=== PATIENT | male | born 1990 | race Caucasian/White ===

== ENCOUNTER 2017-08-28 11:38 | Emergency (ER) | payer OTHER ==
--- NOTE | 2017-08-28 14:31 | RAD ---
INDICATION: Facial injury. TECHNIQUE: 4 views of the facial bones were obtained. FINDINGS: No fracture is seen. There is mild deviation of the nasal septum toward the right side. The paranasal sinuses appear clear. IMPRESSION: NO EVIDENCE FOR FRACTURE.
--- NOTE | 2017-08-28 14:33 | RAD ---
INDICATION: Left great toe injury. TECHNIQUE: 3 views of the left great toe were obtained. FINDINGS: There is soft tissue swelling which is most prominent adjacent to the distal phalanx. There is a fracture through the plantar base of the distal phalanx extending to the articular margin. The fracture fragment is distracted. IMPRESSION: DISPLACED INTRA-ARTICULAR FRACTURE BASE OF THE DISTAL PHALANX.
--- NOTE | 2017-08-28 14:33 | RAD ---
INDICATION: Right femur injury. TECHNIQUE: 2 views of the right femur were obtained. FINDINGS: The bones are normal alignment. No fracture is seen. IMPRESSION: NO EVIDENCE FOR FRACTURE.
--- NOTE | 2017-08-28 14:35 | RAD ---
INDICATION: Left lower leg injury. TECHNIQUE: 2 views of the left lower leg were obtained. FINDINGS: There is soft tissue swelling anterior to the proximal diaphysis of the tibia. The bones are in normal alignment. No fracture is seen. IMPRESSION: SOFT TISSUE SWELLING, NO FRACTURE IS SEEN.
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
== END 2017-08-28 14:50 | disposition home or self-care (01) ==
LOC: UCEAST 11:38
DX: S92.912A Unspecified fracture of left toe(s), initial encounter for closed fracture (principal); W06.XXXA Fall from bed, initial encounter; S70.12XA Contusion of left thigh, initial encounter; S00.83XA Contusion of other part of head, initial encounter; S00.531A Contusion of lip, initial encounter; Y93.9 Activity, unspecified; Y92.9 Unspecified place or not applicable; Y99.9 Unspecified external cause status
CPT/HCPCS: 70150; 99201; G0463

== ENCOUNTER 2019-10-31 15:29 | Emergency (ER) | payer BC, OTHER ==
[2019-10-31] MEDS ORDERED: Tetan/Diph/Pertus SYR(Tdap)* 0.5 ML SYR(BOOSTRIX) use SYR contains LATEX IM ONE (16:30)
--- NOTE | 2019-10-31 17:05 | UC ---
Hand/Wrist HPI - HPI Summary HPI Summary: 29-year-old male presents for puncture wound to his left index finger. States 2 days ago he accidentally drilled a screw into the palmar aspect of his left index finger over the DIP. States that the screw only penetrated the skin superficially as it went through a thick pair of work gloves. States he immediately cleaned out the wound with soap and water. Last tetanus was over 10 years ago. Denies fever, chills, erythema, edema, pain or decreased range of motion. - History Of Current Complaint Chief Complaint: UCUpperExtremity Stated Complaint: TETNUS NEEDED Time Seen by Provider: 10/31/19 16:36 Hx Obtained From: Patient Pain Intensity: 0 - Allergies/Home Medications Allergies/Adverse Reactions: Allergies Allergy/AdvReac Type Severity Reaction Status Date / Time No Known Allergies Allergy Verified 10/31/19 15:39 Home Medications: Home Medications NK [No Home Medications Reported] 10/31/19 [History Confirmed 10/31/19] PMH/Surg Hx/FS Hx/Imm Hx Previously Healthy: Yes - Denies significant PMH - Surgical History Surgical History: None - Family History Known Family History: Positive: Non-Contributory - Social History Occupation: Employed Full-time Lives: With Family Alcohol Use: Occasionally Substance Use Type: None Smoking Status (MU): Never Smoked Tobacco - Immunization History Most Recent Influenza Vaccination: none Most Recent Tetanus Shot: unknown Review of Systems All Other Systems Reviewed And Are Negative: Yes Constitutional: Negative: Fever, Chills Skin: Positive: Other - See HPI Respiratory: Positive: Negative Cardiovascular: Positive: Negative Gastrointestinal: Positive: Negative Genitourinary: Positive: Negative Motor: Negative: Weakness Neurovascular: Negative: Decreased Sensation Musculoskeletal: Negative: Arthralgia, Decreased ROM Neurological: Positive: Negative Is Patient Immunocompromised?: No Physical Exam - Summary Physical Exam Summary: GENERAL APPEARANCE: Well developed, well nourished, alert and cooperative, and appears to be in no acute distress. CARDIAC: Normal S1 and S2. No S3, S4 or murmurs. Rhythm is regular. There is no peripheral edema, cyanosis or pallor. Extremities are warm and well perfused. Capillary refill is less than 2 seconds. Peripheral pulses intact. LUNGS: Clear to auscultation without rales, rhonchi, wheezing or diminished breath sounds. ABDOMEN: Positive bowel sounds. Soft, nondistended, nontender. No guarding or rebound. No masses or hepatosplenomegally. MUSKULOSKELETAL:Normal muscular development. Normal gait. EXTREMITIES: Superficial puncture wound to the palmar aspect of the left index finger over the DIP. No erythema, edema, or discharge noted. The DIP is non- tender. Full ROM to the finger. Circulation and sensation. SKIN: Skin normal color, texture and turgor. Triage Information Reviewed: Yes Vital Signs: Initial Vital Signs Temp 99.2 F 10/31/19 15:35 Pulse 73 10/31/19 15:35 Resp 16 10/31/19 15:35 BP 114/71 10/31/19 15:35 Pulse Ox 98 10/31/19 15:35 Vital Signs Reviewed: Yes Hand/Wrist Course/Dx - Course Course Of Treatment: 29-year-old male presents for puncture wound to his left index finger. States 2 days ago he accidentally drilled a screw into the palmar aspect of his left index finger over the DIP. States that the screw only penetrated the skin superficially as it went through a thick pair of work gloves. States he immediately cleaned out the wound with soap and water. Last tetanus was over 10 years ago. Denies fever, chills, erythema, edema, pain or decreased range of motion. Afebrile. Vital signs stable. Patient had a superficial puncture wound to the palmar aspect of the left index finger over the DIP, no erythema, edema, or discharge noted, the DIP was non-tender, he had Full ROM to the finger with circulation and sensation. Considering the mechanism and location of the injury we discussed possibly obtaining a x-ray to rule out foreign body or fracture however patient is electing to defer this at this time. His tetanus was updated. He is to return here or with his primary care provider as needed. Wound care, anticipatory guidance, and warning symptoms are reviewed with the patient. Verbalizes understanding and agrees with plan of care. - Differential Dx/Diagnosis Differential Diagnosis/HQI/PQRI: Cellulitis, Fracture, Puncture Wound Provider Diagnosis: Puncture wound of left index finger Discharge ED - Sign-Out/Discharge Documenting (check all that apply): Patient Departure All imaging exams completed and their final reports reviewed: No Studies - Discharge Plan Condition: Stable Disposition: HOME Patient Education Materials: Puncture Wound (ED) Referrals: No Primary Care Phys,NOPCP [Primary Care Provider] - Additional Instructions: Your tetanus was updated today. Be sure to notify your primary care provider so that he can update their records. Clean the wound with a mild soap and water at least once a day. Apply some antibiotic ointment and cover with a bandage. This should be changed at least once a day or any time the dressing becomes wet or soiled. Use acetaminophen (Tylenol) or ibuprofen (Advil, Motrin) according to directions as needed for pain. Watch for signs of infection including fever greater than 100.5 F, severe pain not managed with pain medication, redness that spreads, swelling of the hand/ fingers, or pus draining from the wound. Seek immediate medical attention should any of these occur. - Billing Disposition and Condition Condition: STABLE Disposition: Home
== END 2019-10-31 17:20 | disposition home or self-care (01) ==
LOC: UCEAST 15:29
DX: S61.231A Puncture wound without foreign body of left index finger without damage to nail, initial encounter (principal); Z23 Encounter for immunization; W29.8XXA Contact with other powered hand tools and household machinery, initial encounter; Y92.9 Unspecified place or not applicable
CPT/HCPCS: 90471; 90715; 99211; G0463